=== PATIENT | female | born 2000 | race Caucasian/White ===

== ENCOUNTER 2020-05-11 00:48 | Emergency (ER) | payer OTHER, SELFPAY ==
--- NOTE | ~2020-05-11 | CT_ITS ---
EXAMINATION: CT brain wo con INDICATION: Altered mental status, decreased level of consciousness COMPARISON: 04/05/2017 TECHNIQUE: Standard unenhanced head CT. The dose-length product (DLP) was 605.33 mGy-cm. The mA was a djusted according to patient size. Iterative reconstruction technique was employed. FINDINGS: There is no intracranial hemorrhage, acute infarction, or abnormal mass lesion. The ventric les are normal. There is no abnormal mass effect or midline shift. The leigh-white matter differentiat ion is normal. The basal cisterns are patent. The orbits are normal. The paranasal sinuses, mastoids and calvarium are normal. IMPRESSION: 1. No acute intracranial abnormality. Reviewed, dictated and finalized at location A. [facility]
[2020-05-11 00:46] VITALS: BP 104/70; PULSE 103; RESP 26; O2SAT 96
--- NOTE | 2020-05-11 00:48 | ECG_ITS ---
Measurements Intervals [place] Rate: 83 P: 58 MS: 137 QRS: 48 QRSD: 102 T: 26 QT: 374 QTc: 441 Interpretive Statements SINUS RHYTHM NORMAL ECG Electronically Signed On 05-11-2020 7:04:59 [employer] by Malick Peterson D.O.
--- NOTE | 2020-05-11 00:49 | ED.ALCOHOL ---
HPI - Alcohol General Chief Complaint: Alcohol Stated Complaint: etoh Source: EMS Mode of arrival: EMS Limitations: intoxication History of Present Illness HPI narrative: This patient is is 19 year old female who presents via EMS for evaluation of alcohol intoxication. EMS reports patient was on the ground when they arrived on scene. The car that patient was riding in was stopped by the police. Once the car was stopped, patient get out of the car and she laid down on the ground. She had multiple episodes of emesis, and EMS reports patient was only responsive to painful stimuli on their arrival. It is reported that she had a half bottle of tequila tonight. Patient is unable to answer questions at this time due to intoxication and dry heaving. Review of Systems Review of Systems: All systems reviewed & are unremarkable except as noted in HPI and below ROS unobtainable: Yes other (alcohol intoxication) Constitutional: Constitutional: Denies chills Cardiovascular: Cardiovascular: Denies chest pain Respiratory: Respiratory: Denies cough and Denies dyspnea Gastrointestinal: Gastrointestinal: Denies abdominal pain, Reports nausea and Reports vomiting [facility] Past Medical History Medical History (Updated 05/11/20 @ 05:33 by Jennie Kaufman MD) Asthma Social History Social History (Updated 05/11/20 @ 05:30 by Jennie Kaufman MD) Smoking status: Never smoker Alcohol intake: current Exam Const: Other: patient actively dry heaving HENMT: Head: normocephalic and atraumatic Face and sinus: face symmetric Mouth: Yes Normal oral and palatal mucosa present, Yes lip normal, Yes oropharynx normal and Yes moist mucous membranes Eyes: Pupils: Equal, round and reactive pupils present EOM: EOMs intact bilaterally Resp: Effort & Inspection: normal respiratory effort and no retractions Auscultation: clear to auscultation bilaterally Cardio: Rate: regular rate Rhythm: regular rhythm Heart sounds: no murmurs GI: GI Palp: Yes Soft to palpation, No Tenderness to palpation present (GI) and No Guarding due to palpation present (GI) Auscultation: normal bowel sounds Neuro: General: moves all extremities Course Reevaluation(s) Reevaluation #1: PAtient is now awake alert and oriented x 3. She has clear speech and she appears clinically sober Date: 05/11/20 Time: 05:33 Vital Signs Vital signs: Vital Signs Pulse Rate 103 H 05/11/20 00:46 Respiratory Rate 26 H 05/11/20 00:46 Blood Pressure 104/70 05/11/20 00:46 Pulse Oximetry 96 05/11/20 00:46 Pulse Rate 98 05/11/20 04:24 Respiratory Rate 16 05/11/20 04:24 Blood Pressure 91/54 L 05/11/20 04:24 Pulse Oximetry 97 05/11/20 04:24 MDM - Alcohol Lab Data Attestation: I reviewed the patient's lab results. Result diagrams: 05/11/20 01:02 05/11/20 01:02 Labs: Lab Results 05/11/20 05/11/20 05/11/20 Range/Units 00:56 01:02 01:02 WBC 11.6 H (4.5-10.0) K/mm3 RBC 4.48 (4.2-5.4) M/mm3 Hgb 14.0 (12.0-15.0) g/dL Hct 40.9 (37.0-47.0) % MCV 91.3 (80-100) fl MCH 31.3 (26-34) pg MCHC 34.2 (32-36) g/dl RDW 11.5 (11.5-14.5) % Plt Count 415 H (150-375) k/mm3 MPV 9.9 (7.4-10.4) fl Immature Gran % (Auto) 0.4 (0-0.5) % Neut % (Auto) 50.0 (45.5-73.1) % Lymph % (Auto) 42.8 (18.3-44.2) % [place] % (Auto) 6.0 (2.6-8.5) % Eos % (Auto) 0.3 (0-4.4) % Baso % (Auto) 0.5 (0.2-1.2) % Lymph # (Auto) 4.96 H (0.9-3.2) K/mm3 [place] # (Auto) 0.7 H (0.1-0.6) K/mm3 Eos # (Auto) 0.0 (0-0.3) K/mm3 Baso # (Auto) 0.1 (0.0-0.1) K/mm3 Abs Immat Gran (auto) 0.05 H (0.00-0.031) K/mm3 Absolute Neuts (auto) 5.8 (1.3-6.7) K/mm3 Absolute Nucleated RBC 0.0 (0.0-0.012) K/mm3 Nucleated RBC % 0.0 (0.0-0.2) % APTT (22.3-36.8) SECONDS Sodium (137-145) mmol/L Potassium (3.4-5.0) mmol/L Chloride (98-107) mmol/L
[2020-05-11] MEDS: LACTATED RINGERS 1,000 ML 999 ML IV CONT (01:08)
[2020-05-11] MEDS: ONDANSETRON INJ 4 MG/2 ML VIAL IV PUSH (01:08)
[2020-05-11 01:12] LABS: Basophils Absolute Auto 0.1 K/mm3 (0.0-0.1); Basophils Percent Auto 0.5 % (0.2-1.2); Eosinophils Percent Auto 0.3 % (0-4.4); Hematocrit 40.9 % (37.0-47.0); Immature Granulocyte Absolute 0.05 K/mm3 (0.00-0.031); Immature Granulocyte Percent A 0.4 % (0-0.5); Lymphocytes Absolute Auto 4.96 K/mm3 (0.9-3.2); Lymphocytes Percent Auto 42.8 % (18.3-44.2); Mean Corpuscular HGB Conc 34.2 g/dl (32-36); Mean Corpuscular Hemoglobin 31.3 pg (26-34); Mean Corpuscular Volume 91.3 fl (80-100); Mean Platelet Volume 9.9 fl (7.4-10.4); Monocytes Absolute Auto 0.7 K/mm3 (0.1-0.6); Neutrophils Absolute Auto 5.8 K/mm3 (1.3-6.7); Platelet Count Result 415 k/mm3 (150-375); Red Blood Count 4.48 M/mm3 (4.2-5.4); Red Cell Distribution Width 11.5 % (11.5-14.5); White Blood Count 11.6 K/mm3 (4.5-10.0)
[2020-05-11 01:22] LABS: Alanine Aminotransferase 26 U/L (4-35); Albumin Level 4.6 g/dL (3.5-5.1); Alkaline Phosphatase 58 U/L (38-126); Anion Gap 11 mmol/L (8-16); Aspartate Amino Transferase 34 U/L (14-36); Bilirubin,Total 0.3 mg/dL (0.2-1.3); Blood Urea Nitrogen 8 mg/dL (7-17); Calcium 8.6 mg/dL (8.4-10.2); Carbon Dioxide 24 mmol/L (22-30); Chloride 105 mmol/L (98-107); Estimated Glomerular Filt Rate > 60; Glucose 164 mg/dL (65-105); Lipase 67 U/L (23-300); Magnesium 2.1 mg/dL (1.6-2.3); Potassium 3.4 mmol/L (3.4-5.0); Sodium 140 mmol/L (137-145)
[2020-05-11] MEDS: THIAMINE HCL INJ 100 MG, FOLIC ACID INJ 1 MG, MULTIVITAMINS-12 INJ VIAL 1 5 ML, MULTIVI... IV CONT (01:24)
[2020-05-11 01:25] VITALS: BP 106/65; PULSE 79; RESP 17; O2SAT 99
[2020-05-11 01:25] LABS: Add Urine Microscopic? NO; Appearance Urine Clear (Clear); Bilirubin Urine Negative (Negative); Blood Urine Negative (Negative); Color Urine Straw (Yellow); Glucose Urine UA Negative (Negative); Ketones Urine Negative (Negative); Leukocyte Esterase Ur Negative LEU/UL (Negative); Nitrate Urine Negative (Negative); Protein Urine Negative (Negative); Specific Grav Ur 1.008 (1.001-1.035); Urobilinogen Urine Negative mg/dL (<2.0)
[2020-05-11 01:30] LABS: Glucose Point of Care 163 (65-105)
[2020-05-11 01:31] LABS: Partial Thromboplastin Time < 20.0 SECONDS (22.3-36.8)
[2020-05-11 01:39] LABS: Ethanol 245 mg/dL (<10)
[2020-05-11 02:00] LABS: Amphetamine Screen Urine Negative (Negative); Barbiturate Screen Urine Negative (Negative); Benzodiazepines Screen Urine Negative (Negative); Cannabinoid Screen Urine Negative (Negative); Cocaine Screen Urine Negative (Negative); Methadone Screen Urine Negative (Negative); Opiate Screen Urine Negative (Negative); Phencyclidine Screen Urine Negative (Negative)
[2020-05-11 02:25] VITALS: BP 109/50; PULSE 99; RESP 19; O2SAT 98
[2020-05-11 04:24] VITALS: BP 91/54; PULSE 98; RESP 16; O2SAT 97
--- NOTE | 2020-05-11 05:04 | PC.NURSE ---
Pt awake and asking if she can go home if someone comes to get her. notified.
== END 2020-05-11 05:39 | disposition home or self-care (01) ==
PROVIDERS: Emergency Provider General Practice
DX: F10.129 Alcohol abuse with intoxication, unspecified (principal); J45.909 Unspecified asthma, uncomplicated; Y90.8 Blood alcohol level of 240 mg/100 ml or more
CPT/HCPCS: 36415; 51701; 70450; 80053; 80307; 81003; 81025; 82948; 83690; 83735; 85025; 85730; 93005; 96365; 96366; 96375; 99284; J2405; J3411; J3475; J7030; J7120; L0140